=== PATIENT | male | born 1995 | race Caucasian/White ===

== ENCOUNTER 2019-11-12 13:51 | Emergency (ER) | payer OTHER, SELFPAY ==
[2019-11-12 14:06] VITALS: BP 123/64; PULSE 93; RESP 14; TEMP 36.6; O2SAT 99
--- NOTE | 2019-11-12 14:06 | ED.URI ---
HPI - URI/Sore Throat General Chief Complaint: Upper Respiratory Infection Stated Complaint: sore throat Time Seen by Provider: 11/12/19 14:06 Source: patient and RN notes reviewed History of Present Illness HPI Narrative: Patient is a 24-year-old male that presents the urgent care with complaints of a sore throat. Patient states that it started approximately 3 days ago and he has not taken anything [id number] for his symptoms. Patient denies any fever, chills, nausea, vomiting. Denies of any cough or other upper respiratory related symptoms. No other acute complaints. No acute distress noted. Patient read the plan of care. Related Data Allergies Allergy/AdvReac Type Severity Reaction Status Date / Time No Known Allergies Allergy Verified 11/12/19 14:12 Review of Systems Review of Systems: Narrative: CONSTITUTIONAL: Denies fever, chills, or sweats. EYES: Denies visual changes, redness, or discharge. ENT: Reports of sore throat CARDIOVASCULAR: Denies chest pain, palpitations, or edema. RESPIRATORY: Denies cough or dyspnea. GASTROINTESTINAL: Denies abdominal pain, nausea, vomiting, or diarrhea. GENITOURINARY: Denies dysuria or hematuria. SKIN: Denies rash or itching. MUSCULOSKELETAL: Denies back pain, joint pain, or myalgia. NEUROLOGIC: Denies headache, numbness, or weakness. All other systems reviewed are negative, except as documented in HPI. [facility] Past Medical History Medical History (Updated 11/12/19 @ 14:25 by JIM Carvalho) Healthy adult Surgical History Surgical History (Updated 07/02/19 @ 16:39 by Nithya Urena) No pertinent past surgical history Social History Social History (Updated 07/02/19 @ 16:40 by Nithya Urena) Smoking status: Current some day smoker Tobacco type: e-cigarettes/vaping Alcohol intake: current Substance use: current Substance use type: marijuana Comments At the time of my signature, I reviewed and agree with the nursing past medical, surgical, social, and family history. There is no relevant family history pertinent to the patient complaint. Exam Narrative: Exam Narrative: GENERAL: This is a well-nourished, well-developed patient, in no apparent distress. HEAD: normocephalic, atraumatic. EYES: PERRL. Sclera clear/white. Vision is grossly intact. EARS: External ears normal, auditory canals clear and without drainage, TMs normal without perforation. Hearing grossly intact. NOSE: External nose normal with no obvious nasal discharge, nares without redness, no rhinorrhea. THROAT: Mucous membranes moist, mild erythema noted posterior oropharynx with moderate postnasal drainage and notable exudate noted on the right NECK: Neck supple, non-tender without lymphadenopathy, masses or thyromegaly. CARDIOVASCULAR: Regular rate and rhythm without murmurs, gallops, or rubs. RESPIRATORY: Clear to auscultation. Breath sounds equal bilaterally. No wheezes, rales, or rhonchi. SKIN: warm, intact with no suspicious lesions or rash, good texture and turgor. NEURO: awake, alert, and oriented to person, place and time. There were no obvious focal neurologic abnormalities. EXTREMITIES: No clubbing, cyanosis, or edema. Course Vital Signs Vital signs: Vital Signs Temperature 97.9 F 11/12/19 14:06 Pulse Rate 93 11/12/19 14:06 Respiratory Rate 14 11/12/19 14:06 Blood Pressure 123/64 11/12/19 14:06 Pulse Oximetry 99 11/12/19 14:06 Temperature 97.9 F 11/12/19 14:06 Pulse Rate 93 11/12/19 14:06 Respiratory Rate 14 11/12/19 14:06 Blood Pressure 123/64 11/12/19 14:06 Pulse Oximetry 99 11/12/19 14:06 Reviewed MDM - URI/Sore Throat MDM Narrative Medical decision making narrative: Reviewed lab results with the patient. He is aware that strep swab was positive. Advised the patient to complete antibiotic regimen as prescribed. Make sure to drink with the medication. May use Flonase and Claritin [id number] for postnasal drainage and symp
== END 2019-11-12 14:31 | disposition home or self-care (01) ==
PROVIDERS: Emergency Provider Nurse Practitioner Family
DX: J02.0 Streptococcal pharyngitis (principal)
CPT/HCPCS: 87880; 99213; G0463

== ENCOUNTER 2020-10-17 12:29 | Emergency (ER) | payer SELFPAY ==
[2020-10-17 12:37] VITALS: BP 127/70; PULSE 76; RESP 20; TEMP 36.4; O2SAT 100
--- NOTE | 2020-10-17 12:44 | ED.SKABFB ---
HPI - Skin/Abscess/Foreign Bdy General Chief complaint: Skin/Abscess/Foreign Body Stated complaint: dog bite on hand Time Seen by Provider: 10/17/20 12:44 Source: patient Mode of arrival: ambulatory Limitations: no limitations History of Present Illness HPI narrative: patient presents with dog bite to right hand. multiple abrasions to right hand. unsure of last tdap. no redness no swelling no concern for infection MD complaint: other Onset (ago): day(s) Tetanus up to date: unsure (unsure) Location: R hand Severity: mild Relieving factors: immobilization Exacerbating factors: movement Context: none Related Data Allergies Allergy/AdvReac Type Severity Reaction Status Date / Time No Known Allergies Allergy Verified 10/17/20 12:44 Review of Systems Review of Systems: Narrative: CONSTITUTIONAL: Denies fever, chills, or sweats. EYES: Denies visual changes, redness, or discharge. ENT: Denies rhinorrhea, congestion, sore throat, or otalgia. CARDIOVASCULAR: Denies chest pain, palpitations, or edema. RESPIRATORY: Denies cough or dyspnea. GASTROINTESTINAL: Denies abdominal pain, nausea, vomiting, or diarrhea. GENITOURINARY: Denies dysuria or hematuria. SKIN: Denies rash or itching. MUSCULOSKELETAL: Denies back pain, joint pain, or myalgia. NEUROLOGIC: Denies headache, numbness, or weakness. PSYCHIATRIC: Denies anxiety or depression. PMFSH Past Medical History Medical History (Updated 10/17/20 @ 12:54 by JIM Muller) Healthy adult Surgical History Surgical History (Updated 07/02/19 @ 16:39 by Nithya Urena) No pertinent past surgical history Social History Social History (Updated 07/02/19 @ 16:40 by Nithya Urena) Smoking status: Current some day smoker Tobacco type: e-cigarettes/vaping Alcohol intake: current Substance use: current Substance use type: marijuana Comments At time of signature, agree with nursing past medical, surgical, social and family history. There is no relevant family history pertinent to the presenting complaint Exam Narrative: Exam Narrative: GENERAL: Well-appearing, well-nourished, and in no acute distress. HEAD: Normocephalic, atraumatic. EYES: PERRLA and EOMI. ENT: Nares clear, no rhinorrhea or epistaxis. Mucous membranes moist. NECK: Supple. CHEST: Clear to auscultation. No respiratory distress. HEART: Regular rate and rhythm. No murmur heard. Normal peripheral pulses. ABDOMEN: Soft, nontender, nondistended, normal active bowel sounds. EXTREMITIES: Normal range of motion. No edema. HAND EXAM - multiple superficial abrasions to hand no laceration, no swelling, no erythema, normal digit cascade with flexion of fingers, median nerve, ulnar nerve, radial nerve is intact. Normal sensation of each side of each finger, can perform `ok? sign, `cross over finger test of index and middle fingers? and `thumbs up? sign, normal thumb opposition, no scissoring. good capillary refill and radial pulse. normal flexion and extension of fingers and wrist. normal supination at wrist. Normal forearm and elbow exam. SKIN: Warm, dry, no rash. NEURO: No focal deficits. Alert and oriented x3. Una Coma Scale Eye Opening: Spontaneous 4 Una Coma Scale Motor: Obeys Commands 6 Una Coma Scale Verbal: Oriented 5 Una Coma Scale Total 15 Course Vital Signs Vital signs: Vital Signs Temperature 36.4 C 10/17/20 12:37 Pulse Rate 76 10/17/20 12:37 Respiratory Rate 20 10/17/20 12:37 Blood Pressure 127/70 10/17/20 12:37 Pulse Oximetry 100 10/17/20 12:37 Temperature 36.4 C 10/17/20 12:37 Pulse Rate 76 10/17/20 12:37 Respiratory Rate 20 10/17/20 12:37 Blood Pressure 127/70 10/17/20 12:37 Pulse Oximetry 100 10/17/20 12:37 MDM - Skin/Abscess/Foreign Bdy Differential Diagnosis Differential diagnosis: Likely abscess of skin or subcutaneous tissue and other (dog bite, cellullitis laceration) Critical Care Time Critical Care Time Critical
[2020-10-17] MEDS: TETANUS,DIPHTHERIA,AC PERTUSSIS ADULT (0.5 ML) BOOSTRIX IM (12:54)
== END 2020-10-17 13:14 | disposition home or self-care (01) ==
PROVIDERS: Emergency Provider Nurse Practitioner Family
DX: S60.511A Abrasion of right hand, initial encounter (principal); W54.0XXA Bitten by dog, initial encounter; Z23 Encounter for immunization; F17.200 Nicotine dependence, unspecified, uncomplicated
CPT/HCPCS: 90471; 90715; 99213; G0463

== ENCOUNTER 2022-04-16 00:03 | Emergency (ER) | payer SELFPAY ==
--- NOTE | ~2022-04-16 | XR_ITS ---
XR shoulder LT min 2V 04/16/2022 01:02 Indication: Left shoulder pain Procedure: 5 views of the left shoulder Comparison: No prior studies for comparison. Findings: There is widening of the left coracoclavicular distance in the acromioclavicular joint, con sistent with AC separation. No fracture is identified. No significant soft tissue abnormality. No for eign bodies. Impression: 1: Left acromioclavicular joint separation. Reviewed, dictated and finalized at location A. Impression: 1: Left acromioclavicular joint separation.
[2022-04-16 00:09] VITALS: BP 110/62; PULSE 97; RESP 19; TEMP 36.7; O2SAT 98
[2022-04-16] MEDS: ONDANSETRON HCL ODT 4 MG TABLET PO (00:55)
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
== END 2022-04-16 01:51 | disposition home or self-care (01) ==
PROVIDERS: Emergency Provider Emergency Medicine
DX: S43.102A Unspecified dislocation of left acromioclavicular joint, initial encounter (principal); F17.290 Nicotine dependence, other tobacco product, uncomplicated; W03.XXXA Other fall on same level due to collision with another person, initial encounter
CPT/HCPCS: 73030; 99283; A4565; A9270